=== PATIENT | female | born 1955 | race African-American/Black ===

== ENCOUNTER 2020-01-05 10:58 | Emergency (ER) | payer MEDICARE, OTHER ==
[2020-01-05 11:08] VITALS: BMI 36.5
[2020-01-05 12:45] LABS: BASO % 0.3 % (0-2.0); EOS % 0.3 % (0-4.5); HEMATOCRIT 39.9 % (32.4-45.2); HEMOGLOBIN 12.8 GM/dL (10.7-15.3); LYMPH % 33.4 % (8-40); MCH 23.7 pg (25.7-33.7); MCHC 32.1 g/dl (32.0-36.0); MEAN PLT VOLUME 9.4 fl (7.5-11.1); MONO % 6.5 % (3.8-10.2); NEUT % 59.5 % (42.8-82.8); PLATELET COUNT 229 K/MM3 (134-434); RBC 5.39 M/mm3 (3.60-5.2); RDW 18.1 % (11.6-15.6); WHITE BLOOD COUNT 4.2 K/mm3 (4.0-10.0)
--- NOTE | 2020-01-05 12:47 | PDOC ---
History of Present Illness - General Chief Complaint: Chest Pain Stated Complaint: CHEST PAIN Time Seen by Provider: 01/05/20 11:56 - History of Present Illness Initial Comments: Margaret Espinosa is a 64 y/o female with reported PMH significant for HTN, HLD, COPD not on home O2, presenting today with mid sternal chest pain that started yesterday. Reports that the pain is intermittent and has remained the same in severity. Pain does not radiate anywhere else. Describes pain as pressure like in sensation. Never had this before. No pleuritic chest pain. Pain is not worse on palpation. No headache/fever/dizziness. No shortness of breath. No abd pain. No back pain. No leg swelling. No diarrhea/dysuria. FamHx: no cardiac famhx SocHx: remote smoking hx over 30 years ago (10 pack year) Past History - Past Medical History Allergies/Adverse Reactions: Allergies Allergy/AdvReac Type Severity Reaction Status Date / Time No Known Allergies Allergy Verified 01/05/20 11:07 Home Medications: Ambulatory Orders Aspirin Coated [Ecotrin -] 81 mg PO DAILY 03/31/12 Methadone HCl 60 tab PO DAILY 03/31/12 Quetiapine Fumarate [Seroquel -] 1,200 mg PO HS 03/31/12 Atorvastatin Ca [Lipitor] 20 mg PO HS 10/03/13 Amlodipine Besylate [Norvasc -] 5 mg PO DAILY 02/06/16 Olmesartan/Hydrochlorothiazide [Benicar Hct 40-25 mg Tablet] 1 each PO DAILY 02/06/16 Budesonide/Formeterol Fumarate [SYMBICORT 160/4.5mcg -] 1 inh PO BID 01/05/20 Risperidone 0.5 mg PO DAILY 01/05/20 Anemia: No Asthma: No Cancer: No Cardiac Disorders: No CVA: No COPD: Yes CHF: No Dementia: No Diabetes: No GI Disorders: No Disorders: No HTN: Yes Hypercholesterolemia: Yes Liver Disease: No Seizures: No Thyroid Disease: No - Surgical History Abdominal Surgery: No Appendectomy: No Cardiac Surgery: No Cholecystectomy: No Lung Surgery: No Neurologic Surgery: No Orthopedic Surgery: No - Psycho Social/Smoking Cessation Hx Smoking History: Never smoked Have you smoked in the past 12 months: No If you are a former smoker, when did you quit?: 21 years ago Hx Alcohol Use: No Drug/Substance Use Hx: No Substance Use Type: Cocaine, Heroin Hx Substance Use Treatment: No ([facility]) Cardiac Specific PMH - Complaint Specific PMHX Pacemaker: No Review of Systems - Review of Systems Comments:: GENERAL/CONSTITUTIONAL: No fever or chills. No weakness._ HEAD, EYES, EARS, NOSE AND THROAT: No change in vision. No change in hearing. No sore throat._ CARDIOVASCULAR: Reports chest pain. No shortness of breath_ RESPIRATORY: Denies cough, hemoptysis_ GASTROINTESTINAL: No nausea, vomiting, diarrhea or constipation._ GENITOURINARY: No dysuria, frequency, or change in urination._ MUSCULOSKELETAL: No joint or muscle swelling or pain. No neck or back pain._ SKIN: No rash_ NEUROLOGIC: No headache, vertigo, loss of consciousness, or change in strength/sensation._ ENDOCRINE: No increased thirst. No abnormal weight change_ HEMATOLOGIC/LYMPHATIC: No anemia, easy bleeding, or history of blood clots._ ALLERGIC/IMMUNOLOGIC: No hives or skin allergy._ *Physical Exam - Vital Signs Last Vital Signs Temp Pulse Resp BP Pulse Ox 98.2 F 83 16 138/81 97 01/05/20 11:02 01/05/20 11:02 01/05/20 11:02 01/05/20 11:02 01/05/20 11:02 - Physical Exam GENERAL: Awake, alert, and oriented to person/place/time, in no acute distress_ HEAD: No signs of trauma, normocephalic, atraumatic _ EYES: PERRLA, EOMI, sclera anicteric, conjunctiva clear_ ENT: Hearing grossly normal, nares patent, oropharynx clear without exudates. No uvular deviation. Moist mucosa_ NECK: Normal ROM, supple, no lymphadenopathy, JVD, or masses_ LUNGS: No distress, speaks in full sentences, clear to auscultation bilaterally _ CHEST: no chest wall TTP. HEART: Regular rate and rhythm, normal S1 and S2, no murmurs appreciated, peripheral pulses normal and equal bilaterally._ ABDOMEN: Soft, nontender, normoactive bowel sounds. No guarding, no rebound. No masses_ EXTREMITIES: Normal inspection, Normal range of motion, no edema. No clubbing or cyanosis_ NEUROLOGICAL: Cranial nerves II through XII grossly intact. Normal speech, normal gait, no focal sensorimotor deficits _ SKIN: Warm, Dry, normal turgor, no rashes or lesions noted_ ED Treatment Course - LABORATORY CBC & Chemistry Diagram: 01/05/20 12:25 01/05/20 12:25 - ADDITIONAL ORDERS Additional order review: Laboratory Results 01/05/20 12:25 Sodium 138 Potassium 4.7 Chloride 103 Carbon Dioxide 30 Anion Gap 5 L BUN 26.5 H Creatinine 1.5 H Est GFR (CKD-EPI)AfAm 41.94 Est GFR (CKD-EPI)NonAf 36.18 Random Glucose 99 Calcium 8.6 Total Bilirubin 0.3 AST 27 ALT 27 Alkaline Phosphatase 100 Creatine Kinase 141 Troponin I 0.02 Total Protein 8.2 Albumin 3.8 01/05/20 12:25 RBC 5.39 H MCV 74.0 L MCHC 32.1 RDW 18.1 H MPV 9.4 Neutrophils % 59.5 Lymphocytes % 33.4 D Monocytes % 6.5 Eosinophils % 0.3 Basophils % 0.3 Medical Decision Making - Medical Decision Making 01/05/20 12:53 64F hx of HTN HLD COPD presenting with mid sternal chest pain since yesterday. HEART score 3. Wells score 0. -cbc, cmp -ekg, trop, cxr 01/05/20 12:55 EKG shows NSR 85 bpm, no ST elevation, QTc 433. 01/05/20 12:57 CXR shows prominent ascending aorta (seen on prior CXR in 2011) otherwise no acute thoracic pathology. 01/05/20 13:49 Labs reviewed. Laboratory Last Values WBC 4.2 K/mm3 (4.0-10.0) 01/05/20 12:25 RBC 5.39 M/mm3 (3.60-5.2) H 01/05/20 12:25 Hgb 12.8 GM/dL (10.7-15.3) 01/05/20 12:25 Hct 39.9 % (32.4-45.2) 01/05/20 12:25 MCV 74.0 fl (80-96) L 01/05/20 12:25 MCH 23.7 pg (25.7-33.7) L 01/05/20 12:25 MCHC 32.1 g/dl (32.0-36.0) 01/05/20 12:25 RDW 18.1 % (11.6-15.6) H 01/05/20 12:25 Plt Count 229 K/MM3 (134-434) 01/05/20 12:25 MPV 9.4 fl (7.5-11.1) 01/05/20 12:25 Absolute Neuts (auto) 2.5 K/mm3 (1.5-8.0) 01/05/20 12:25 Neutrophils % 59.5 % (42.8-82.8) 01/05/20 12:25 Lymphocytes % 33.4 % (8-40) D 01/05/20 12:25 Monocytes % 6.5 % (3.8-10.2) 01/05/20 12:25 Eosinophils % 0.3 % (0-4.5) 01/05/20 12:25 Basophils % 0.3 % (0-2.0) 01/05/20 12:25 Nucleated RBC % 0 % (0-0) 01/05/20 12:25 Sodium 138 mmol/L (136-145) 01/05/20 12:25 Potassium 4.7 mmol/L (3.5-5.1) 01/05/20 12:25 Chloride 103 mmol/L (98-107) 01/05/20 12:25 Carbon Dioxide 30 mmol/L (21-32) 01/05/20 12:25 Anion Gap 5 MMOL/L (8-16) L 01/05/20 12:25 BUN 26.5 mg/dL (7-18) H 01/05/20 12:25 Creatinine 1.5 mg/dL (0.55-1.3) H 01/05/20 12:25 Est GFR (CKD-EPI)AfAm 41.94 01/05/20 12:25 Est GFR (CKD-EPI)NonAf 36.18 01/05/20 12:25 Random Glucose 99 mg/dL (74-106) 01/05/20 12:25 Calcium 8.6 mg/dL (8.5-10.1) 01/05/20 12:25 Total Bilirubin 0.3 mg/dL (0.2-1) 01/05/20 12:25 AST 27 U/L (15-37) 01/05/20 12:25 ALT 27 U/L (13-61) 01/05/20 12:25 Alkaline Phosphatase 100 U/L (45-117) 01/05/20 12:25 Creatine Kinase 141 U/L (26-192) 01/05/20 12:25 Troponin I 0.02 ng/ml (0.00-0.05) 01/05/20 12:25 Total Protein 8.2 g/dl (6.4-8.2) 01/05/20 12:25 Albumin 3.8 g/dl (3.4-5.0) 01/05/20 12:25 Pt reassessed. Plan to d/c home with cards f/u. All questions answered. Return precautions given. Pt verbalized understanding and agreement with plan. Discharge - Discharge Information Problems reviewed: Yes Clinical Impression/Diagnosis: Chest pain Condition: Stable Disposition: HOME - Admission No - Follow up/Referral Referrals: Rock Mares [Primary Care Provider] - Mauricio Denis MD [Staff Physician] - - Patient Discharge Instructions Patient Printed Discharge Instructions: DI for Atypical Chest Pain, DI for Chest Pain Additional Instructions: You were evaluated for chest pain. Your EKG and troponin were within normal limits. Please make a follow up with cardiology (referral provided here). If you experience any new, worsening, or concerning symptoms, including wo rsening chest pain, shortness of breath, dizziness, or any other concerns, please return to the emergency department. - Post Discharge Activity
[2020-01-05 13:24] LABS: ALBUMIN 3.8 g/dl (3.4-5.0); BILIRUBIN,TOTAL 0.3 mg/dL (0.2-1); BLOOD UREA NITROGEN 26.5 mg/dL (7-18); CALCIUM 8.6 mg/dL (8.5-10.1); CREATININE 1.5 mg/dL (0.55-1.3); POTASSIUM 4.7 mmol/L (3.5-5.1); TOT PROT 8.2 g/dl (6.4-8.2)
[2020-01-05 14:15] VITALS: BP 133/58; PULSE 82; TEMP 98.5
--- NOTE | 2020-01-08 15:05 | EKG ---
Test Reason : Blood Pressure : / mmHG Vent. Rate : 085 BPM Atrial Rate : 085 BPM P-R Int : 128 ms QRS Dur : 084 ms QT Int : 364 ms P-R-T Axes : 064 017 004 degrees QTc Int : 433 ms NORMAL SINUS RHYTHM POSSIBLE LEFT ATRIAL ENLARGEMENT NONSPECIFIC ST ABNORMALITY ABNORMAL ECG WHEN COMPARED WITH ECG OF 31-MAR-2012 10:04, NO SIGNIFICANT CHANGE WAS FOUND Confirmed by CHUN RINCON MD ([id number]) on 01/08/2020 3:04:57 PM Referred By: Confirmed By:CHUN RINCON MD
== END 2020-01-05 14:15 | disposition home or self-care (01) ==
LOC: JER 10:58
DX: R07.9 Chest pain, unspecified (principal)
CPT/HCPCS: 36415; 71045-TC-FY; 80053; 82550; 84484; 85025; 93005; 93010; 99285-25